=== PATIENT | female | born 1960 | race Caucasian/White ===

== ENCOUNTER 2017-10-14 22:06 | Inpatient (IN) | payer OTHER ==
[2017-10-14] MEDS ORDERED: NS 0.9% 1000 ML* 2,000 ML IV ONE (23:00)
[2017-10-14] MEDS ORDERED: HYDROmorphone INJ* 2 MG/ML CARPUJECT SYRINGE IV SLOW PU ONE (23:01)
[2017-10-14] MEDS ORDERED: Metoclopramide IV* 5 MG/ML 2 ML VIAL IV SLOW PU ONE (23:02)
[2017-10-15 00:13] LABS: ABS Basophils 0 10^3/ul (0-0.2); ABS Eosinophils 0 10^3/ul (0-0.6); ABS Lymphocytes 0.4 10^3/ul (1.0-4.8); ABS Monocytes 0.2 10^3/ul (0-0.8); ABS Neutrophils 5.8 10^3/ul (1.5-7.7); ABS Nucleated RBC 0 10^3/ul; Eosinophil % 0.1 % (0-6); Hematocrit 35 % (35-47); Hemoglobin 11.7 g/dl (12.0-16.0); Lymphocyte % 6.4 % (25-47); Mean Corpuscular HGB Conc 33 g/dl (31-36); Mean Corpuscular Hemoglobin 29 pg (27-31); Mean Corpuscular Volume 88 fL (80-97); Mean Platelet Volume 7.4 um3 (7.4-10.4); Nucleated Red Blood Cells % 0.1; Platelet Count 853 10^3/ul (150-450); Red Blood Count 3.99 10^6/ul (4.0-5.4); Red Cell Distribution Width 18 % (10.5-15); White Blood Count 6.4 10^3/ul (3.5-10.8)
[2017-10-15] MEDS ORDERED: HYDROmorphone INJ* 2 MG/ML CARPUJECT SYRINGE IV SLOW PU ONE ×2 (00:20→03:47)
[2017-10-15 00:27] LABS: EGFR Non-African American 147.9 (>60)
[2017-10-15] MEDS ORDERED: Iohexol 300* (CONTRAST) 10 ML SDV IV ONE (01:09)
[2017-10-15 02:14] LABS: Urine Appearance Cloudy; Urine Blood Negative (Negative); Urine Color Yellow; Urine Ketones 1+ (Negative); Urine Protein Negative (Negative); Urine Specific Gravity > 1.060 (1.010-1.030); Urine Urobilinogen Negative (Negative)
[2017-10-15] MEDS ORDERED: fentaNYL* 50 MCG/ML 2 ML VIAL (100 MCG VIAL) IV SLOW PU ONE (02:49)
[2017-10-15] MEDS ORDERED: HYDROmorphone INJ* 2 MG/ML CARPUJECT SYRINGE IV SLOW PU PRN (03:23)
[2017-10-15] MEDS ORDERED: Ondansetron INJ* 2 MG/ML VIAL IV PRN (03:23)
[2017-10-15] MEDS ORDERED: Metoclopramide IV* 5 MG/ML 2 ML VIAL IV PRN (03:23)
[2017-10-15] MEDS ORDERED: Nicotine Inhaler* 10 MG AMP INH PRN (03:28)
[2017-10-15] MEDS ORDERED: Mouth Piece, Nicotine* 1 EACH CARTRIDGE INH PRN (03:28)
--- NOTE | 2017-10-15 03:43 | ED ---
Sukh Zheng Thomas, scribed for Maryan Dunlap MD on 10/14/17 at 2328 . Abdominal Pain/Female - HPI Summary HPI Summary: The patient is a 57 year old female who was diagnosed with pancreatic cancer seven months ago. Her last BM was five days ago. She complains of abdominal pain , abdominal distention, and decreased urination. She also complains of some vomiting. She is on a Dilaudid patch for pain. She is on oral chemotherapy. - History of Current Complaint Chief Complaint: EDAbdPain Stated Complaint: PAIN/STAGE 4 CANCER PT Time Seen by Provider: 10/14/17 22:39 Hx Obtained From: Patient Onset/Duration: Lasting Days, Still Present Timing: Constant Severity Currently: Severe Pain Intensity: 10 Pain Scale Used: 0-10 Numeric Location: Diffuse Aggravating Factor(s): Other: - Touch Alleviating Factor(s): Nothing Associated Signs and Symptoms: Positive: Other: - Abd pain, abd distentino, decreased urination, vomiting. Negative: Fever Allergies/Adverse Reactions: Allergies Allergy/AdvReac Type Severity Reaction Status Date / Time No Known Allergies Allergy Verified 10/14/17 22:20 Home Medications: Home Medications fentaNYL [Duragesic] 50 mcg TD DAILY 10/14/17 [History Confirmed 10/14/17] PMH/Surg Hx/FS Hx/Imm Hx Endocrine/Hematology History: Denies: Hx Diabetes Cardiovascular History: Denies: Hx Hypertension History: Denies: Hx Renal Disease Sensory History: Denies: Hx Legally Blind, Hx Deafness Opthamlomology History: Denies: Hx Legally Blind - Cancer History Cancer Type, Location and Year: stage 4 pancreatic cancer Hx Chemotherapy: No Hx Radiation Therapy: No - Surgical History Surgery Procedure, Year, and Place: neck ,right knee Infectious Disease History: No Infectious Disease History: Denies: Traveled Outside the [place] in Last 30 Days - Family History Known Family History: Negative: Hypertension - Social History Alcohol Use: None Substance Use Type: Reports: Prescribed Smoking Status (MU): Light Every Day Tobacco Smoker Review of Systems Negative: Fever Positive: Vomiting, Other - Abd pain, abd distention Genitourinary: Other - Decreased urination All Other Systems Reviewed And Are Negative: Yes Physical Exam - Summary Physical Exam Summary: VITAL SIGNS: Reviewed. GENERAL: Patient is a pale, ille-appearing female who appears older than her age. Patient is not in any acute respiratory distress. HEAD AND FACE: No signs of trauma. No ecchymosis, hematomas or skull depressions. No sinus tenderness. EYES: PERRLA, EOMI x 2, No injected conjunctiva, no nystagmus. EARS: Hearing grossly intact. Ear canals and tympanic membranes are within normal limits. MOUTH: Oropharynx within normal limits. NECK: Supple, trachea is midline, no adenopathy, no JVD, no carotid bruit, no c- spine tenderness, neck with full ROM. CHEST: Symmetric, no tenderness at palpation LUNGS: Clear to auscultation bilaterally. No wheezing or crackles. CVS: Regular rate and rhythm, S1 and S2 present, no murmurs or gallops appreciated. ABDOMEN: Soft. She is diffusely tender. There is abdominal distention. No rebound no guarding, and no masses palpated. Bowel sounds are hypoactive. EXTREMITIES: FROM in all major joints, no edema, no cyanosis or clubbing. NEURO: Alert and oriented x 3. No acute neurological deficits. Speech is normal and follows commands. SKIN: Dry and warm Triage Information Reviewed: Yes Vital Signs On Initial Exam: Initial Vitals Temp Pulse Resp BP Pulse Ox 97.7 F 110 18 104/63 94 10/14/17 22:17 10/14/17 22:17 10/14/17 22:17 10/14/17 22:17 10/14/17 22:17 Vital Signs Reviewed: Yes Diagnostics - Vital Signs Vital Signs Temp Pulse Resp BP Pulse Ox 10/14/17 22:17 97.7 F 110 18 104/63 94 - Laboratory Result Diagrams: 10/15/17 00:00 10/15/17 00:00 Lab Statement: Any lab studies that have been ordered have been reviewed, and results considered in the medical decision making process. - CT CT Abdomen/Pelvis CT Interpretation: Positive (See Comments) - Impression: increasing ascites. Abdominal wall peritoneal and retroperitoneal masses in the pancreatic mass and adrenal masses likely related to metastatic neoplasm which was present at the time of prior study. Dr. Dunlap has reviewed this report. CT Interpretation Completed By: Radiologist Abdominal Pain Fem Course/Dx - Course Course Of Treatment: The patient is a 57 year old female who was diagnosed with pancreatic cancer seven months ago and on oral chemotherapy. Her last BM was five days ago. She complains of abdominal pain, abdominal distention, and decreased urination. In the ED course, the patient was given Dilaudid, Reglan, and IV fluids. Bloodwork and urinalysis were obtained. CT Abdomen/Pelvis shows increasing ascites. Abdominal wall peritoneal and retroperitoneal masses in the pancreatic mass and adrenal masses likely related to metastatic neoplasm which was present at the time of prior study. Dr. Hester admits the patient [place] [facility] - Diagnoses Provider Diagnoses: Abdominal pain, Malignant ascites, Pancreatic cancer - Provider Notifications Discussed Care Of Patient With: Ginger Hester Time Discussed With Above Provider: 02:52 Instructed by Provider To: Admit As Inpatient Discharge - Sign-Out/Discharge Documenting (check all that apply): Discharge/Admit/Transfer - Discharge Plan Condition: Fair Disposition: ADMITTED TO [facility] Referrals: Samuel Leal MD [Primary Care Provider] - The documentation as recorded by the Sukh carmona Thomas accurately reflects the service I personally performed and the decisions made by , Maryan Dunlap MD.
[2017-10-15] MEDS ORDERED: fentaNYL PATCH 50 MCG/HR TRANSDERM SCH ×2 (04:00→18:30)
[2017-10-15] MEDS: NS 0.9% 1000 ML* 1,000 ML IV SCH ×2 (05:49→19:42)
[2017-10-15] MEDS ORDERED: Heparin VIAL(*) 5000 UNITS/ML VIAL (FIVE THOUSAND) SUBCUT SCH (06:00)
--- NOTE | 2017-10-15 06:03 | HP ---
CC: Dr. Leal HISTORY AND PHYSICAL: DATE OF ADMISSION: 10/15/17 PRIMARY CARE PROVIDER: None, but to be established with Dr. Leal. CHIEF COMPLAINT: Abdominal pain. HISTORY OF PRESENT ILLNESS: Ms. Castillo is a 57-year-old female who was diagnosed with pancreatic ca ncer in April 2017, who presents to the emergency room with complaints of abdominal pain. Of note , the patient is an extremely poor historian. She is also somewhat lethargic at this point. The mirna ent states that she has had increased abdominal swelling over the last 4 to 5 days. She states durin g that period of time, her abdominal pain is normally chronic and worsened. She has been utilizing D ilaudid at home for pain. Additionally, the patient states that she has been having nausea and vomit ing. She states that she has been taking a chemotherapy agent that is in pill form, she does not kno w the name of it. She did not take it the day prior to admission. She states that the reason she ca me in is because she could no longer handle the pain. She indicates her last bowel movement was a co uple days ago. She states she is urinating normally. PAST MEDICAL HISTORY: Metastatic pancreatic cancer. PAST SURGICAL HISTORY: 1. Right total knee replacement. 2. Tonsillectomy. MEDICATIONS: 1. Fentanyl patch 50 mcg topically q.72 hours. 2. Hydromorphone 2 mg p.o. q.4 hours p.r.n. pain. ALLERGIES: No known drug allergies. FAMILY HISTORY: Mom at the age of 54 of cancer. Dad at the age of 89 of an [place]. SOCIAL HISTORY: The patient is an active smoker of approximately 2 cigarettes per day. She has been smoking more heavily since the age of 15. She denies any alcohol use. She states that she worked o n an [employer] line and she is not . She has 4 children. She indicates that her daughter Estefanía would be her healthcare proxy. REVIEW OF SYSTEMS: The patient initially admits to having fever and chills, but then states that she has not had fever. She states she has had no appetite. She states her weight is down approximately 70 pounds in 6 months. She complains of intermittent left-sided chest pain that is no longer presen t at this point. She denies any edema. No cough, no shortness of breath. She admits to the abdomin al pain as noted above. She denies any hematochezia, no hematuria, no dysuria. No focal weakness or sensory loss. No sudden changes of vision. No dysphagia. She does complain of left leg pain. She denies any rashes. She denies any anxiety or depression. PHYSICAL EXAMINATION GENERAL: The patient is a well-developed, cachectic female, who appears quite a bit older than her s tated age, sitting up in bed with her legs almost "Peruvian style" bent over at the waist, lying on sev eral pillows. VITAL SIGNS: Blood pressure 97/58, pulse 107, respirations 18, temp 97.7, O2 sat 92% on room air. HEENT: Pupils are equal and round. Extraocular muscles are intact. Oropharynx is clear. Oral muco sa is somewhat dry. PULMONARY: Lungs are clear to auscultation bilaterally. CARDIAC: Normal S1, S2. Heart rate is tachycardic. I do not appreciate any murmurs. There is no l ower extremity edema. ABDOMEN: Bowel sounds present. Abdomen is soft, moderately distended. She is moderately tender to palpation in the right upper and left upper quadrant. MUSCULOSKELETAL: There is no cyanosis or clubbing of the digits. There is full active range of johnson on of all 4 extremities. NEUROLOGIC: Cranial nerves II through XII appear to be grossly intact. Sensation is intact to light touch throughout. Strength is 5/5 and symmetric in both upper and lower extremities bilaterally. SKIN: Warm and dry. There are no rashes. PSYCH: The patient is somewhat lethargic, but she is able to answer questions. She is oriented to e situation. She is a poor historian. DIAGNOSTIC STUDIES/LAB DATA: WBC 6.4, hemoglobin 11.7, hematocrit 35, platelets 853. PTT 31. Sodi um 130, potassium 3.7, chloride 90, CO2 29, BUN 6, creatinine 0.44, glucose 110, lactic acid 1.5, sonia cium 8.8, magnesium 1.7. Bilirubin 0.8, AST 21, ALT 8, alkaline phosphatase 92, CRP 43.44, albumin 3 .0. Amylase 118, lipase 166. Urinalysis reveals a specific gravity of greater than 1.060, 1+ ketone s are noted. Abdomen and pelvis CT, there is increasing ascites. Abdominal wall peritoneal and retroperitoneal ma sses and pancreatic mass as well as adrenal masses are noted. There is cholelithiasis. There is some gallbladder wall thickening. There is a common bile duct stent which contains intermediate density material. There is a 5.4 x 3.9 cm mass in the pancreatic head that was present on prior study. ASSESSMENT AND PLAN: Ms. Castillo is an unfortunate 57-year-old female who has a history of metastati c pancreatic cancer, who presents to the emergency room with complaints of severe abdominal pain. 1. Abdominal pain. The etiology of this is not completely clear. She states that she has chronic a bdominal pain, it is now worse than her baseline however. She states that typically she uses Dilaudi d at home for pain control. She will be admitted under observation status to achieve improved pain c ontrol. My suspicion is her abdominal pain is truly related to her metastatic cancer in the ascites and not much else. The patient does have mildly elevated lipase and amylase. I do not have any prio r labs to compare to. For now, she will be hydrated and received IV pain medications in addition to her fentanyl patch. Followup labs can be obtained to see if the lipase and amylase are trending down . I will increase her Dilaudid to 2 mg IV every 4 hours as needed for pain. The patient states that at one point, she did have fever at home. Given the ascites, SBP should be considered; however, she does not have an elevated white blood cell count and fever is not identified here. Additionally on exam, the patient had tenderness in the upper quadrants, but not the lower quadrants and if she were to have peritonitis, I would not suspect that she would have difference in her pain based on location of the abdomen. 2. Hyponatremia. The patient is mildly hyponatremic with a sodium of 130. I suspect she is volume deplete given the high specific gravity of urine. She will receive normal saline at 100 mL per hour. I will get followup basic metabolic panel a.m. 10/16/17. 3. DVT prophylaxis. According to the Adult Thrombosis Prophylaxis Risk Factor Assessment Guide, the patient has a total risk factor score of 3 making her high risk. She will be placed on heparin 5000 units subcutaneous q.8 hours. 4. Code status is full. TIME SPENT: Fifty-five minutes was spent admitting this patient. [id number]/[facility] #: [id number]
[2017-10-15] MEDS: fentaNYL Patch Check Q Shift 1 NOTE SCH ×2 (07:00→18:49)
--- NOTE | 2017-10-15 09:30 | RAD ---
INDICATION: Abdominal pain, history of malignant neoplasm of the pancreas and metastatic disease. COMPARISON: Comparison is made with a prior CT of the abdomen and pelvis from October 11, 2017. TECHNIQUE: A CT scan of the abdomen and pelvis was performed with intravenous and oral contrast following intravenous injection of 72 ml of Omnipaque 300 nonionic contrast. Contiguous axial sections were obtained from the lung bases through the symphysis pubis. Images were reconstructed in the coronal and sagittal planes. FINDINGS: The lung bases are clear. No pleural effusion is present. The heart is within normal limits in size. There are masses deep to the pericardium adjacent to the right atrium and anterior to the pericardium and left ventricle which appear unchanged. The liver is normal and size without significant focal abnormality. There is pneumobilia present. No calcified gallstones are seen. There is a biliary stent present. There is a large pancreatic mass present within the pancreatic head which is heterogeneous in density measuring approximately 7.2 x 4.3 cm in size which is unchanged. There is distention of the pancreatic duct in the body and tail of the pancreas, unchanged. The spleen is upper limits of normal in size. There are new areas of decreased density in the inferior aspect of the spleen suspicious for infarcts. The largest measures 1.6 x 2.0 cm in size. There are bilateral adrenal masses which appear unchanged. The kidneys are normal in size. No hydronephrosis is present. The urinary bladder is distended. No bladder wall thickening is seen. The aorta is normal in caliber with mild calcific plaque present. There are enlarged retrocrural and multiple enlarged retroperitoneal lymph nodes as previously discussed which appear unchanged. In addition there are multiple mesenteric implants present throughout the abdomen with the largest mass present in the left lower quadrant measuring 5.1 x 5.0 cm in size which is unchanged. There are masses in the retroperitoneum which are most prominent around the kidneys which are unchanged. The stomach, small and large bowel appear nondistended. There is a large heterogeneous mass arising from the posterior fundus and body of the stomach. This is new from the recent prior exam and suspicious for an area of hemorrhage possible a partial perforation. This measures approximately 8.8 x 2.5 cm in size. There is a moderate amount of ascites which is increased slightly from the prior study. No free intraperitoneal air is seen. No significant focal osseous abnormality is seen. There are soft tissue density masses present in the lower anterior and posterior chest wall which are unchanged. The results of this examination were discussed with LANDON Garcia. IMPRESSION: 1. NEW HYPODENSE LESIONS IN THE INFERIOR ASPECT OF THE SPLEEN SUGGESTIVE OF SPLENIC INFARCTS. 2. NEW LARGE HETEROGENEOUS MASS PRESENT ALONG THE WALL AND SEROSAL SURFACE OF THE BODY AND FUNDUS OF THE STOMACH POSSIBLY REPRESENTING AN AREA OF HEMORRHAGE VERSUS A PARTIAL GASTRIC PERFORATION. 3. LARGE PANCREATIC MASS, UNCHANGED. 4. BILATERAL ADRENAL MASSES, UNCHANGED. 5. CARDIAC MASS AND MASS ANTERIOR TO THE PERICARDIUM, UNCHANGED. 6. ENLARGED RETROCRURAL AND RETROPERITONEAL LYMPH NODES, UNCHANGED. 7. MULTIPLE MESENTERIC AND RETROPERITONEAL MASSES, UNCHANGED. 8. MODERATE AMOUNT OF ASCITES SLIGHTLY INCREASED.
[2017-10-15] MEDS: HYDROmorphone INJ* 2 MG/ML CARPUJECT SYRINGE IV SLOW PU PRN ×6 (11:05→23:54)
--- NOTE | 2017-10-15 17:43 | PN ---
Subjective Date of Service: 10/15/17 Interval History: Patient complains of severe abdominal pain which is worse than her baseline at home but she always has a large amount of abdominal pain. Patient has not had a BM today. Patient denies F/C, N/V, CP, SOB, dysuria, or other pain. Patient has poor pain control with dilaudid and fentanyl but has been able to sleep through the day. Family History: Unchanged from Admission Social History: Unchanged from Admission Past Medical History: Unchanged from Admission Objective Active Medications: Device (Nicotine Mouth Piece*) 1 each INH .USE WITH NICOTROL PRN PRN Reason: CRAVING Fentanyl (Duragesic Patch 50 Mcg/Hr*) 50 mcg TRANSDERM Q72H [facility] Last Admin: 10/15/17 05:54 Dose: 50 mcg Hydromorphone HCl (Dilaudid Inj*) 2 mg IV SLOW PU Q2H PRN PRN Reason: PAIN Last Admin: 10/15/17 15:09 Dose: 2 mg Sodium Chloride (Ns 0.9% 1000 Ml*) 1,000 mls @ 100 mls/hr IV PER RATE [facility] Last Admin: 10/15/17 05:49 Dose: 100 mls/hr Metoclopramide HCl (Reglan Iv*) 10 mg IV Q6H PRN PRN Reason: NAUSEA/VOMITING Nicotine (Nicotine Inhaler*) 10 mg INH Q2H PRN PRN Reason: CRAVING Ondansetron HCl (Zofran Inj*) 4 mg IV Q6H PRN PRN Reason: NAUSEA Last Admin: 10/15/17 05:48 Dose: 4 mg Pharmacy Profile Note (Fentanyl Patch Check Q Shift) 0 note N/A 0700,1900 [facility] Last Admin: 10/15/17 07:00 Dose: 1 note Prochlorperazine Edisylate (Compazine Inj*) 10 mg IV Q6H PRN PRN Reason: NAUSEA/VOMITING Vital Signs - 8 hr 10/15/17 10/15/17 15:07 15:09 Temperature 98.8 F Pulse Rate 107 Respiratory 18 16 Rate Blood Pressure 105/66 (mmHg) O2 Sat by Pulse 92 Oximetry Oxygen Devices in Use Now: None Appearance: Patient is a 57yo female who appears stated age and is sitting in the bed in moderate distress from pain. Eyes: No Scleral Icterus, PERRLA Ears/Nose/Mouth/Throat: NL Teeth, Lips, Gums, Clear Oropharnyx, Mucous Membranes Moist Neck: NL Appearance and Movements; NL JVP, Trachea Midline Respiratory: Symmetrical Chest Expansion and Respiratory Effort, Clear to Auscultation Cardiovascular: NL Sounds; No Murmurs; No JVD, RRR, No Edema Abdominal: - - Distended, tender to palpation, normoactive bowel sounds. Exam limited by pain. Lymphatic: No Cervical Adenopathy Extremities: No Edema, No Clubbing, Cyanosis Skin: No Rash or Ulcers, No Nodules or Sclerosis Neurological: Alert and Oriented x 3, NL Sensation, NL Muscle Strength and Tone , - - CN II-XII intact. Result Diagrams: 10/15/17 00:00 10/15/17 00:00 Assess/Plan/Problems-Billing Assessment: Patient is a 57yo female with a PMH for lung cancer and metastatic pancreatic cancer who is currently on second line chemotherapy and has severe abdominal pain with splenic infarction and possible hemorrhage into the wall of her stomach. - Patient Problems (1) Pancreatic cancer Current Visit: Yes Status: Acute Comment: Appreciate Oncology Input. Patient has metastatic pancreatic cancer and is currently on second line chemotherapy with Topetecan due progression with Carboplatin and Etoposide. Poor Prognosis (2) Abdominal pain Current Visit: Yes Status: Acute Code(s): R10.9 - UNSPECIFIED ABDOMINAL PAIN SNOMED Code(s): 51211448 Comment: Severe abdominal pain, increased from basline moderately controlled with Dilaudid and Fentanyl patch. Patient has new splenic infarction and stomach perforation vs serosal hemorrhage on CT. Will not anticoagulate for splenic infarction due to possible hemorrhage. Appreciate GI input Scope contraindicated due to possible perforation and there would be limited opportunity for intervention anyway. (3) History of COPD Current Visit: No Status: Chronic Priority: Low Code(s): Z87.09 - PERSONAL HISTORY OF OTHER DISEASES OF THE RESPIRATORY SYSTEM SNOMED Code(s): 910511695 Comment: Not in exacerbation. On no controller medications. (4) DVT prophylaxis Current Visit: Yes Status: Acute Code(s): WLV4814 - SNOMED Code(s): 990459806 Comment: Heparin held due to possible hemorrhage in stomach. Status and Disposition: Inpatient.
[2017-10-15] MEDS ORDERED: fentaNYL PATCH 75 MCG/HR* 75 MCG TRANSDERM SCH (18:47)
--- NOTE | 2017-10-16 01:14 | CONS ---
CC: Dr. Leal; Dr. Johnston CONSULTATION REPORT: DATE OF CONSULTATION: 10/15/17. REQUESTING PROVIDER: LANDON Reyes. PRIMARY CARE PHYSICIAN: Dr. Leal. INDICATION: Abdominal pain, CT is showing possible gastric hematoma versus contained perforation. NARRATIVE: Ms. Castillo is a very unfortunate 57-year-old female with metastatic pancreatic cancer. She was diagnosed pancreatic cancer in April of last year. She has been on treatment for pancreati c cancer. She has seen Dr. Johnston and they are trying a second-line therapy at this point. She does h ave chronic abdominal pain, however, she came to the emergency room last night with a worsening of he r chronic abdominal pain. She also states that her abdominal girth had increased in size over the st week or so. She does have chronic nausea, really no vomiting. She has been using Dilaudid at home for her pain. She denies any nonsteroidal such aspirin or ibuprofen. No history of GI bleeding or ulcers in the past. She tells me that her abdominal pain had been improving up until approximately a n hour ago at which time a staff member was trying to take her blood pressure and unfortunately leane d against the bed, which was not locked and the bed rolled out, and the staff member fell on the mirna ent's abdomen causing a worsening of her pain. I saw her approximately 20 to 30 minutes after that e pisode, and the patient states that the pain is still very severe worse than it was a few hours ago. PAST MEDICAL HISTORY: Please see the HPI. PAST SURGICAL HISTORY: Surgical history includes knee replacement and tonsillectomy. MEDICATIONS: At home were: 1. Dilaudid. 2. Fentanyl patch. ALLERGIES: None. FAMILY HISTORY: Coronary artery disease. SOCIAL HISTORY: She continues to smoke. No alcohol use. She does have children that live in the [facility]. REVIEW OF SYSTEMS: Twelve systems were reviewed, and other than mentioned in the HPI were unremarkab le. PHYSICAL EXAM: Temperature is 98.8, blood pressure is 105/66, pulse of 107, O2 sat is 92%, respirato ry rate of 18. General: Chronically ill-appearing female, appears much older than her stated age, a lert, oriented, and fluent. HEENT: Sclerae are darkened. She has alopecia. Neck is supple. Trache a is midline. Heart: Regular rate and rhythm, but tachycardic. Lungs: Clear to auscultation bilate rally. No wheezes, rales or rhonchi. Abdomen is distended. She does have very hypoactive bowel tressa nds, but they are present. There is no rebound, but she does have voluntary guarding. Skin is warm and dry. DIAGNOSTIC STUDIES/LAB DATA: Labs of note: White count 6.4, hemoglobin 11.7, platelets of 853. Sod ium 130, BUN 6, creatinine 0.44, glucose of 110, CRP is 43, albumin 3. Amylase 118, lipase 166. CT abdomen and pelvis shows a large heterogenous mass along the body of fundus of the stomach, questi on of hemorrhage versus partial gastric perforation. CT also shows a very large pancreatic mass and metastases. ASSESSMENT AND PLAN: A 57-year-old female with metastatic pancreatic cancer, who presents with abdom inal pain with a new CT finding of a possible gastric hemorrhage versus partial perforation. At this point, it is difficult to tell whether or not her pain has worsened at all. It seemed like it had b een improving; however, there was the issue of a staff member falling on the patient's abdomen and th at has worsened her pain. My concern is if this is a metastasis and either hemorrhage into the metas tasis or a contained partial perforation, an EGD is contraindicated in the setting of a perforation o r a contained perforation. I do not think an EGD would add much or help at this point especially if this is a gastric metastasis. She could potentially have a gastric ulcer that has either bled or part ial perforation, not secondary to her underlying malignancy. However, given the potentially containe d perforation, I would recommend we treat her as a possible ulcer rather than trying to confirm that with an endoscopy at this time. We may need to pursue further imaging to confirm free air or lack th ereof, prior to any potential EGDs down the road. We will continue to follow along. [id number]/[facility] #: [id number]
[2017-10-16] MEDS: HYDROmorphone INJ* 2 MG/ML CARPUJECT SYRINGE IV SLOW PU PRN ×6 (01:57→19:50)
[2017-10-16] MEDS: NS 0.9% 1000 ML* 1,000 ML IV SCH ×2 (05:35→16:08)
[2017-10-16 06:29] LABS: ABS Basophils 0 10^3/ul (0-0.2); ABS Eosinophils 0 10^3/ul (0-0.6); ABS Lymphocytes 0.6 10^3/ul (1.0-4.8); ABS Monocytes 0.1 10^3/ul (0-0.8); ABS Neutrophils 4.5 10^3/ul (1.5-7.7); ABS Nucleated RBC 0 10^3/ul; Eosinophil % 0 % (0-6); Hematocrit 27 % (35-47); Hemoglobin 9.4 g/dl (12.0-16.0); Lymphocyte % 11.1 % (25-47); Mean Corpuscular HGB Conc 35 g/dl (31-36); Mean Corpuscular Hemoglobin 31 pg (27-31); Mean Corpuscular Volume 87 fL (80-97); Mean Platelet Volume 7.7 um3 (7.4-10.4); Nucleated Red Blood Cells % 0; Platelet Count 719 10^3/ul (150-450); Red Blood Count 3.06 10^6/ul (4.0-5.4); Red Cell Distribution Width 18 % (10.5-15); White Blood Count 5.2 10^3/ul (3.5-10.8)
[2017-10-16 06:46] LABS: EGFR Non-African American 221.6 (>60)
[2017-10-16] MEDS: fentaNYL Patch Check Q Shift 1 NOTE SCH ×2 (06:46→19:07)
[2017-10-16] MEDS ORDERED: Ondansetron 40 MG VIAL* 2 MG/ML 20 ML VIAL IV PRN (10:00)
[2017-10-16] MEDS: PROCHLORPERAZINE INJ 5 MG/ML 2 ML VIAL IV PRN ×2 (11:10→19:43)
[2017-10-16] MEDS: Morphine ORAL CONCENTRATE* 5 MG/0.25 ML ORAL.SYRIN SL PRN ×2 (11:11→23:33)
[2017-10-16 23:04] VITALS: BP 76/35
--- NOTE | 2017-10-17 12:20 | DS ---
SUMMARY: DATE OF ADMISSION: 10/15/17 DATE OF :: 10/17/17 PRIMARY CARE PROVIDER: Dr. Leal. HOSPITAL COURSE: Ms. Castillo was a 57-year-old female whom I admitted on with complaints of severe abdominal pain in the setting of known metastatic pancreatic cancer. Initially, the CAT scan report was read by the overnight radiology service as having only increasing ascites without any other concerning features. When the radiologist at [facility] read the scan, they read concerns for splenic infarct and large heterogeneous mass along the wall and serosal surface of the body and fundus of the stomach, possibly representing an area of hemorrhage versus a partial gastric perforation. The patient had pain control achieved with fentanyl patch and IV Dilaudid. GI consultation was requested on 10/15/17. Dr. Forde saw the patient who felt that it would be difficult to tell whether or not this lesion was metastasis versus hemorrhage, into a metastasis or contained partial perforation. It was felt that EGD is contraindicated in the setting of perforation or contained perforation. It was recommended treating her as if she had a possible ulcer rather than trying to confirm that with endoscopy. The patient's care was transferred over to Dr. Goodman on 10/15/17. He saw the patient on 10/16/17, at which time he discussed palliative approach with the patient and family. Ultimately both the patient and her daughter agreed with palliative care. The patient reportedly declined on the day of 10/16/17, becoming quite hypotensive. Ultimately, the patient on at 0004 of a possible gastric perforation, splenic infarct, and metastatic pancreatic cancer. [id number]/[facility] #: [id number] [facility]
--- NOTE | 2017-10-17 23:46 | CONS ---
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 HISTORY OF PRESENT ILLNESS: Yesica Castillo is a 57-year-old female who was first seen to our office by Dr. Johnston on 10/05/17. Her prior therapy had been seen through oncologists out of town. In March 2017, the patient had a mammogram revealing bilateral breast nodules. Both of these revealed invasive cancer, ER/MD, HER-2/avinash negative. In addition, there was left axillary adenopathy. Chest x-ray revealed a hilar mass with a focal 1 cm necrotic subcarinal lymph node. In addition, a 1.7 cm adrenal mass was noted and a 3 cm mass in the head of the pancreas, multiple nodules were also noted. 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 The patient underwent chemotherapy with carboplatin and etoposide from May 2017 to July 2017, which was complicated by febrile neutropenia and influenza. She had also obstructive jaundice in early July 2017. The CT scan revealed an increasing sized mass of the pancreatic head with a mixed response elsewhere. A stent was placed because of the obstructive jaundice. On followup with Dr. Avilez on 08/23/17, both a second line of chemotherapy and also hospice were discussed. The patient is likely to go on chemotherapy with topotecan. She was receiving oral topotecan 4 mg daily for 5 days every 3 weeks. She had 2 cycles, most recently completed on 09/20/17. She first saw Dr. Johnston on and subsequent to that, did start her third cycle of topotecan, receiving 2 days earlier this week . At the time of that visit on 10/05/17, discussion was held that she likely was not going to respond to the topotecan and that she would likely need a transition to hospice at some point in the near future. Her pain had become worse. She was increased on her fentanyl patch up to 50 mcg , having previously been at 12 and then 25. Her Dilaudid was also increased in terms of dosage. At this time, the patient presented to the emergency room with worsening abdominal pain and was quite lethargic. Her abdomen was more distended. She was using more Dilaudid and also having more nausea and vomiting. CT scan was performed of the abdomen and pelvis and unfortunately revealed multiple new findings including that of a splenic infarct, mass in the stomach which was likely an area of hemorrhage versus partial gastric perforation, given her pain most likely gastric perforation. She has been seen just prior to my consultation by Dr. Forde of GI, who felt it would be difficult to tell whether or not this was metastasis versus hemorrhage into a partial perforation. EGD was probably contraindicated in the setting of potential perforation. PAST MEDICAL HISTORY: Otherwise significant for COPD, GERD, common bile duct stent, total knee replacement, tubal ligation. MEDICATIONS: Prior to admission included: 1. Albuterol. 2. Bowel meds. 3. Duragesic patch at 50. 4. Hydromorphone 4 mg 4 times a day p.r.n. 5. Pepto-Bismol. ALLERGIES: None. SOCIAL HISTORY: The patient lives with her daughter in [place]. She is . She is a smoker. No alcohol. REVIEW OF SYSTEMS: Difficult to obtain as the patient is somewhat lethargic. Essentially, only the symptoms discussed above plus diffuse bone pain and back pain were noted. PHYSICAL EXAM: A 57-year-old female, in no acute distress. Vital Signs: Blood pressure 105/66, pulse 107, afebrile. HEENT: Dry mucous membranes. Heart: Regular rate and rhythm without murmurs, rubs, or gallops. Lungs: Clear. Abdomen: Extremely tender. Extremities: No clubbing, cyanosis, or edema. Neurologic Exam: Without focal deficits. LABORATORY STUDIES: White count 6400, H and H 35/11.7, platelet count 853,000. PTT 31. Chemistry studies without significant abnormalities. IMPRESSION: Worsening abdominal pain in the setting of progressive small cell carcinoma of the pancreas having failed first line therapy and now likely failing second line topotecan as well. She has a splenic infarct as well as likely perforation of the stomach. Situation is such that further chemotherapy would not be appropriate. This was discussed with the patient and the daughter and also, treatment had been discussed earlier today with Dr. Johnston. The patient and family understand that further chemotherapy is not an option and therefore, pain control will become their primary goal. Palliation of symptoms is what we will aim for. Hopefully, we will be able to get her home on hospice services. Fentanyl patch is increased from 50 up to 75 and the dose of short- acting narcotics is also increased. [id number]/[facility] #: [id number]
== END 2017-10-17 00:04 | disposition expired | DRG 240 ==
LOC: ED 22:06 → SSU 10-15 03:23 → OBSVTOIN 10-15 12:32
PROVIDERS: ADMIT Hospitalist; ATTEND Hospitalist
DX: C78.89 Secondary malignant neoplasm of other digestive organs (principal); K25.2 Acute gastric ulcer with both hemorrhage and perforation; C34.90 Malignant neoplasm of unspecified part of unspecified bronchus or lung; C79.81 Secondary malignant neoplasm of breast; C77.8 Secondary and unspecified malignant neoplasm of lymph nodes of multiple regions; D73.5 Infarction of spleen; R58 Hemorrhage, not elsewhere classified; R10.9 Unspecified abdominal pain; Z51.5 Encounter for palliative care; Z66 Do not resuscitate; J44.9 Chronic obstructive pulmonary disease, unspecified; K21.9 Gastro-esophageal reflux disease without esophagitis; Z96.651 Presence of right artificial knee joint; F17.210 Nicotine dependence, cigarettes, uncomplicated; Z79.899 Other long term (current) drug therapy; Z80.9 Family history of malignant neoplasm, unspecified; Z82.49 Family history of ischemic heart disease and other diseases of the circulatory system
CPT/HCPCS: 36415; 74177; 80048; 80053; 81003; 82150; 83605; 83690; 83735; 85025; 85730; 86140; 99232; 99285; A9270-GY; J0780; J1170; J1644; J2405; J2765; J3010; Q9967